=== PATIENT | male | born 1950 | race Caucasian/White ===

== ENCOUNTER 2016-09-11 07:51 | Outpatient (CLI) | payer MEDICAID ==
[~2016-09-11] VITALS: Ht 185.4 cm; Wt 80.9 kg
--- NOTE | ~2016-09-11 | HEMODYNAMI ---
PATIENT:NAEEM ESTEVEZ MEDICAL RECORD: [id number] : 54 LOCATION:SIGRID ADMISSION DATE: 09/11/16 Generatedon:09/11/201613:07 Patient name: NAEEM ESTEVEZ Patient #: [id number] SSN: : 1950 Date of study: 09/11/2016 Page: Of Hemodynamic Procedure Report Patient Data Patient Demographics Procedure consent was obtained First Name: NAEEM Gender: Male Last Name: ZENAIDA : 1950 Patient #: [id number] Age: 66 year(s) Race: Unknown Additional ID: [id number] Contact details [address]: [address] [place] [address] State: [place] City: [place] Zip code: [address] Admission Admission Data Admission Date: 09/11/2016 Admission Time: 7:51 Procedure Procedure Types Cath Procedure Peripheral Cath Diagnostic Procedure Miscellaneous Procedure Description Procedure Date Procedure Date: 09/11/2016 Procedure Start Time: 11:41 Procedure Staff Name Function Leighton Marsh MD Performing Physician Cris Montaño RT Scrub Maria C Duron RN Nurse Gil Rahman RT Monitor Procedure Data Cath Procedure Fluoroscopy Diagnostic fluoroscopy Total fluoroscopy Time: 0 time: 0 min min Diagnostic fluoroscopy Total fluoroscopy dose: 284 dose: 284 mGy mGy Contrast Material Contrast Material Type Amount (ml) Isovue 300 114 Entry Location Entry Primary Successful Side Size Upsize 1 Upsize Entry Closure Bowers ccessful Closure Location (Fr) (Fr) 2 (Fr) Remarks Device Remarks Femoral Left 5 Fr 7 Fr Exoseal artery Mid-Length Diagnostic catheters Device Type Used For End Catheter Placement Merit ULTRA BOLUS FLUSH 5Fr 65CM catheter Procedure Medications Medication Administration Route Dosage Fentanyl I.V. 50 mcg Versed I.V. 1 mg Hydralizine I.V. 10 mg Fentanyl I.V. 50 mcg Versed I.V. 1 mg Heparin Bolus I.V. 5000 units Hemodynamics Rest Heart Rate: 63 (bpm) Snapshots Pre Cath Intra NCS Post Cath Vital Signs Time Heart Resp SPO2 NIBP (mmHg) Rhythm Pain Sedation Rate (ipm) (%) Status Level (bpm) 11:31:13 64 19 100 162/96(142) NSR 0 (11) 10(A) , No pain 11:35:33 65 21 100 172/90(140) NSR 0 (11) 10(A) , No pain 11:39:58 60 16 100 179/90(145) NSR 0 (11) 10(A) , No pain 11:44:24 66 21 100 164/94(148) NSR 0 (11) 10(A) , No pain 11:49:43 64 35 100 183/93(153) NSR 0 (11) 10(A) , No pain 11:54:10 70 23 99 180/106(150) NSR 0 (11) 10(A) , No pain 11:58:30 81 16 99 171/92(144) NSR 0 (11) 10(A) , No pain 12:02:50 74 21 98 160/82(132) NSR 0 (11) 10(A) , No pain 12:07:12 75 22 98 156/80(126) NSR 0 (11) 10(A) , No pain 12:11:32 70 60 98 143/79(115) NSR 0 (11) 10(A) , No pain 12:15:50 74 39 98 144/75(125) NSR 0 (11) 10(A) , No pain 12:20:06 72 37 99 152/79(115) NSR 0 (11) 10(A) , No pain 12:24:26 71 29 98 142/79(118) NSR 0 (11) 10(A) , No pain 12:28:43 70 16 99 152/78(114) NSR 0 (11) 10(A) , No pain 12:33:05 68 26 99 142/73(120) NSR 0 (11) 10(A) , No pain 12:37:21 68 30 99 144/77(119) NSR 0 (11) 10(A) , No pain 12:41:39 67 39 99 143/72(122) NSR 0 (11) 10(A) , No pain 12:45:55 68 15 99 141/77(119) NSR 0 (11) 10(A) , No pain 12:50:11 69 16 98 146/76(124) NSR 0 (11) 10(A) , No pain 12:54:27 67 24 99 156/82(119) NSR 0 (11) 10(A) , No pain 12:58:47 69 28 99 155/82(127) NSR 0 (11) 10(A) , No pain 13:03:07 68 22 99 150/81(124) NSR 0 (11) 10(A) , No pain 13:07:07 No Cuff NSR 0 (11) 10(A) , No pain Medications Time Medication Route Dose Verified Delivered Reason Notes Effecti veness by by 11:50:14 Versed I.V. 1 mg Maria C Maria C for sedation Oliverio Duron RN RN 11:50:25 Fentanyl I.V. 50 Maria C Maria C for sedation mcg Oliverio Duron RN RN 11:56:17 Hydralizine I.V. 10 mg Maria C Maria C for Oliverio Oliverio hypertension RN RN 12:05:00 Fentanyl I.V. 50 Maria C Maria C for sedation mcg Oliverio Duron RN RN 12:05:08 Versed I.V. 1 mg Maria C Maria C for sedation Oliverio Duron RN RN 12:10:23 Heparin I.V. 5000 Maria C Maria C Bolus units Oliverio Duron RN occupational therapy department chair Log Time Note 10:43:45 Gil Rahman RT (R) (CV) sent for patient. Start room use. 10:43:56 Time tracking: Regular hours 10:44:04 Plan of Care:Hemodynamics will remain stable., Cardiac rhythm will remain stable., Comfort level will be maintained., Respiratory function will remain adequate., Patient/ family verbilizes understanding of procedure., Procedure tolerated without complication., Recovers from procedure without complications.. 10:44:13 Patient received from Outpatients to IR Alert and oriented. Tansferred to table in Supine position. 10:44:14 Correct patient and procedure confirmed by team. 10:44:16 ECG and BP/O2 sat monitors applied to patient. 10:44:19 Signed procedure consent form obtained from patient. 10:44:21 Full Disclosure recording started 10:44:22 - 10:44:23 - 10:44:26 H&P Date Dictated: 09/11/2016 H&P Addendum completed by physician on day of procedure. (MUST COMPLETE FOR ALL OUTPATIENTS). 10:44:27 Pre-procedure instructions explained to patient. 10:44:27 Pre-op teaching completed and patient verbalized understanding. 10:44:30 Family in waiting room. 10:44:32 Patient NPO since Midnight. 10:44:41 Is the patient allergic to Iodine/contrast media? No. 10:44:43 Is patient on blood thinner?Yes 10:44:46 ACC The patient was administered the following blood thiners within the last 24 hours: ACCPlavix 10:44:47 Patient diabetic? Yes. 10:44:49 If diabetic: On Metformin? Yes 10:44:57 If on Metformin: Last Dose? 09/10/2016 10:45:00 - 10:45:00 ----Pre-sedation anethsthesia assessment.---- 10:45:02 Previous problem with sedation/anesthesia? No ? 10:45:05 Snore? Yes 10:45:06 Sleep apnea? No 10:45:08 Deviated septum? No 10:45:08 Opens mouth fully? Yes 10:45:10 Sticks out tongue? Yes 10:45:17 Airway obstruction? No ? 10:45:20 Dentures? No ? 10:45:21 - 10:45:29 Use device set IR Diagnostic 10:45:30 Acist Syringe opened to sterile field. 10:45:30 Acist Hand Control opened to sterile field. 10:45:31 Acist Manifold opened to sterile field. 10:45:31 Bag Decanter opened to sterile field. 10:45:32 Sterile Angiographic Pack opened to sterile field. 10:49:41 Pre procedure: right dorsailis pedis pulse Doppler 10:49:45 Pre procedure: left dorsailis pedis pulse 2+ Normal; easily identifiable; not easily obliterated 10:49:47 Pre procedure: right posterior tibial pulse Doppler 10:49:51 Pre procedure: left posterior tibial pulse 2+ Normal; easily identifiable; not easily obliterated 10:49:58 Patient pain scale 0/10 no pain. 10:50:01 Sharps counted by scrub and verified by R.N. 10:50:01 Alarms reviewed by R. N. 10:50:08 Bilateral groins area was prepped with chlora-prep and draped in steril e fashion 11:13:46 Vital chart was started 11:13:48 Baseline sample Acquired. 11:13:51 Rhythm: sinus rhythm 11:30:10 Baseline sample Acquired. 11:32:21 Baseline sample Acquired. 11:32:34 IV patent on arrival in right forearm with 0.9% NaCl at [facility]. 11:37:23 Physician responded to page. 11:37:25 Physician responded to page. 11:37:26 Physician responded to page. 11:37:26 Physician responded to page. 11:37:27 Physician responded to page. 11:37:28 Physician responded to page. 11:37:29 Physician arrived 11:37:30 --------ALL STOP TIME OUT------ 11:37:32 Final Timeout: patient, procedure, and site verified with staff and physician. All members of the team are in agreement. 11:37:39 Bilateral groins site verified by team. 11:37:45 Physical assessment completed. ASA score P 3 - A patient with mild systemic disease as per Leighton Marsh MD. 11:37:48 Sedation plan: IV Moderate Sedation Versed, Fentanyl 11:41:09 Procedure started. 11:41:17 Local anesthetic to left femerol artery with Lidocaine 1% by Leighton Marsh MD.INITIAL ACCESS ONLY 11:41:28 A 5 Fr sheath was inserted into the Left Femoral artery 11:41:32 TUBING, CONTRAST INJCTN HI PRES opened to sterile field. 11:41:33 Micropuncture VSI 4FR kit opened to sterile field. 11:41:34 Terumo 5Fr Independence Sheath opened to sterile field. 11:41:34 Amitive DOC .035 guide wire opened to sterile field. 11:41:34 Cook RANDALL 260 guide wire opened to sterile field. 11:41:52 A Ulmart ULTRA BOLUS FLUSH 5Fr 65CM catheter was advanced over the wire and used for . 11:49:58 Terumo ANGLE 180L glide wire opened to sterile field. 11:50:14 Versed 1 mg I.V. was administered by Maria C Duron RN; for sedation; 11:50:25 Fentanyl 50 mcg I.V. was administered by Maria C Duron RN; for sedation; 11:50:31 Terumo TORQUE DEVICE PLASTIC .038 opened to sterile field. 11:56:17 Hydralizine 10 mg I.V. was administered by Maria C Duron RN; for hypertension; 12:01:45 Terumo 7Fr Independence Destination Sheath opened to sterile field. 12:01:58 Sheath upsized to a 7 Fr Mid-Length. 12:03:57 SPIDER EMBOLIC PROTECTION DEVICE 5MM opened to sterile field. 12:05:00 Fentanyl 50 mcg I.V. was administered by Maria C Duron RN; for sedation; 12:05:08 Versed 1 mg I.V. was administered by Maria C Duron RN; for sedation; 12:06:24 Terumo 5FR ANGLED 100CM glide catheter opened to sterile field. 12:07:11 Terumo ANGLE 260cm glide wire opened to sterile field. 12:09:40 Terumo TORQUE DEVICE PLASTIC .038 opened to sterile field. 12:10:23 Heparin Bolus 5000 units I.V. was administered by Maria C Duron RN; ; 12:10:26 CXI SUPPORT .035 135 CM STR catheter opened to sterile field. 12:13:39 BasixTOUCH Inflation Syringe opened to sterile field. 12:14:10 [place] Sci Choice PT Extra Support J 300cm .014 gu opened to sterile field. 12:14:19 SPIDER EMBOLIC PROTECTION DEVICE 5MM opened to sterile field. 12:25:34 TURB[place]K LS-C catheter opened to sterile field. 12:29:28 VIABAHN 6 X 15 X 120 stent was deployed across Distal Common Femoral, Right . 12:34:41 Inflation number: 1 A Cordis Powerflex Pro 6.0 x 40 x 135cm balloon was prepped and advanced across the Distal Common Femoral, Right, then inflated to 0 FREDI for 0:00 (min:sec). 12:39:42 St Cristo 7FR sheath opened to sterile field. 12:39:44 Cordis 7Fr Exoseal opened to sterile field. 12:51:21 Sheath removed intact; hemostasis achieved with Exoseal to the Left Femoral artery. 12:51:24 Procedure ended.(Physican Out) 12:53:42 Contrast amount:Isovue 300 114ml. 12:53:48 Fluoroscopy time 00.00 minutes. 12:53:54 Fluoroscopy dose: 284 mGy 12:53:54 Flurop Dose total: 284 12:54:01 Post-op/insertion site Left Femoral artery dressed using a 4 x 4 and Tegaderm. 12:54:07 Post left femerol artery:stable 12:54:13 Post procedure: right dorsailis pedis pulse 1+ Palpable, but thready & weak; easily obliterated. 12:54:17 Post procedure: left dorsailis pedis pulse 2+ Normal; easily identifiable; not easily obliterated. 12:54:22 Post procedure: right posterior tibial pulse 1+ Palpable, but thready & weak; easily obliterated. 12:54:30 Post procedure: left posterior tibial pulse 2+ Normal; easily identifiable; not easily obliterated. 12:54:37 Post procedure instruction explained to patient.Patient verbalizes understanding. 12:54:38 Procedure and supply charges have been captured, reviewed, submitted an d are correct. 12:54:51 Post-procedure physical assessment completed. ASA score P 3 - A patient with severe systemic disease as per Leighton Marsh MD. 13:06:54 Report given to Outpatients. 13:06:59 Patient transfered to Outpatients with Stretcher. 13:07:57 Vital chart was stopped Intervention Summary Intervention Notes Time ActionType Lesion and Equipment Action# Pressure Duration Attributes Used 12:29:28 Deploy self Distal VIABAHN 6 1 expanding Common X 15 X stent Femoral, 120 stent Right 12:34:41 Inflate Distal Cordis 1 0 00:00 balloon Common Powerflex Femoral, Pro 6.0 x Right 40 x 135cm balloon Device Usage Item Name Manufacture Quantity Catalog Number Hospital Part Current M inimal Lot# / Charge Number Stock Stock Serial# Code Acist Syringe Acist 1 62159 643448 302272 325245 2 0 Medical Systems Inc Acist Hand Acist 1 92610 504769 040271 944330 5 Control Medical Systems Inc Acist Acist 1 64003 697243 871970 454594 5 Manifold Medical Systems Inc Bag Decanter Microtek 1 2002S 313843 02113 066226 5 Medical Inc. Sterile Cardinal 1 [id number] 959396 790342 5 Angiographic Health Pack TUBING, Merit 1 [id number] 398982 701413 421715 5 CONTRAST Medical INJCTN HI PRES Micropuncture VSI VASCULAR 1 7266V 379658 091604 5 VSI 4FR kit SOLUTIONS Terumo 5Fr Terumo 1 FAC206 176631 724549 700416 4 0 Independence Sheath Cook DOC .035 [facility] 1 T37659 356146 883751 5 [id number] guide wire [facility] 1 [id number] 662835 427413 5 [id number] 260 guide wire Merit ULTRA Merit 1 [id number] 209451 139691 5 BOLUS FLUSH Medical 5Fr 65CM catheter Terumo ANGLE Terumo 1 CM8134 633745 832667 781388 5 180L glide wire Terumo TORQUE [place] 2 TD01 648913 348028 181384 5 DEVICE Scientific PLASTIC .038 Terumo 7Fr Terumo 1 RSR04 491932 547773 033626 5 Independence Destination Sheath SPIDER [facility] 2 CSB4-KB-990-320 234217 854948 5 EMBOLIC PROTECTION DEVICE 5MM Terumo 5FR Terumo 1 CG508 229989 85174 306200 4 ANGLED 100CM glide catheter Terumo ANGLE Terumo 1 ZD3526 712389 734677 792295 5 260cm glide wire CXI SUPPORT [facility] 1 D42377 167855 791838 5 4826246 .035 135 CM STR catheter BasixTOEffektif [facility] 1 WS5311 160864 105902 287304 5 Inflation Medical Syringe Decatur Sci [place] 1 [id number] 077776 845698 160701 5 [id number] Choice PT Scientific Extra Support J 300cm .014 gu TURB[place]K Ev3 1 THS-LS-C 045223 796986 5 LS-C catheter VIABAHN 6 X [place] 1 [id number] 669794 278427 015177 5 [id number] 15 X 120 stent Cordis Cardinal 1 [id number] 555867 062760 944435 5 Powerflex Pro Health 6.0 x [address] Crist[facility] [address] [facility] Cristo 1 694750 296404 338011 5 [id number] sheath Cordis 7Fr Cardinal 1 EX700 461302 899765 261078 5 [id number] [facility] Health Signature Audit Tavares Stage Time Signature Unsigned Intra-Procedure 09/11/2016 Gil 1:07:54 PM Josiah RT (R) (CV) Signatures Monitor : Gil Signature : Josiah RT Date : Time : [facility] [address] [place] [address]
[2016-09-11 08:40] LABS: BASOPHILS 0.6 % (0-2); EOSINOPHILS 2.1 % (0-7); HEMATOCRIT 39.3 % (42.0-54.0); HEMOGLOBIN 12.8 g/dL (13.5-17.5); IMMATURE GRANULOCYTES 0.2 % (0-5); LYMPHOCYTES 33.4 % (15-50); MCHC 32.6 g/dL (31.0-37.0); MEAN PLATELET VOLUME 9.7 fL (7.4-10.4); MONOCYTES 8.3 % (2-11); NEUTROPHILS 55.4 % (40-80); PLATELET COUNT 170 10x3/uL (130-400); RBC 4.57 10x6/uL (4.20-6.10); RDW 14.5 % (11.5-14.5); WBC 5.3 10x3/uL (4.8-10.8)
[2016-09-11 08:49] LABS: APTT 28.8 SECONDS (22.8-39.4); CALC OSMOLALITY 287 mosm/kg (275-300); CALCIUM 8.6 mg/dL (8.5-10.1); CARBON DIOXIDE 26.5 mmol/L (21.0-32.0); CHLORIDE - SERUM 107 mmol/L (98-107); CREATININE - SERUM 0.8 mg/dL (0.6-1.3); GLUCOSE 148 mg/dL (74-106); INR 0.93 (0.85-1.17); POTASSIUM - SERUM 4.1 mmol/L (3.5-5.1); PROTIME 12.3 SECONDS (11.6-15.0); SODIUM 142 mmol/L (136-145); UREA NITROGEN 18 mg/dL (7-18); eGFR NON AFRICAN AMERICAN > 90 mL/min (90-120)
[2016-09-11 09:19] VITALS: BP 172/99; Ht 185.4 cm; Wt 80.9 kg
[2016-09-11] MEDS ORDERED: PLAVIX75 MG PO (09:26)
[2016-09-11] MEDS ORDERED: GLUCOPHAGE500 MG PO (09:26)
[2016-09-11] MEDS ORDERED: COLCRYS0.6 MG PO (09:27)
== END 2016-09-11 16:15 | disposition home or self-care (01) ==
LOC: D.OPS 07:51 → D.SP 10:00 → D.OPS 10:00
PROVIDERS: General Practice
DX: I72.4 Aneurysm of artery of lower extremity (principal); Z01.812 Encounter for preprocedural laboratory examination

== ENCOUNTER → 2017-06-04 11:58 | Outpatient (CLI) | payer MEDICARE, MEDICAID ==
[2016-09-11 09:19] VITALS: BMI 23.5
[~2017-06-04 11:58] MED LIST: COLCRYS0.6 MG PO; GLUCOPHAGE500 MG PO; PLAVIX75 MG PO
== END | disposition home or self-care (01) ==
LOC: D.CT 11:58
DX: I73.9 Peripheral vascular disease, unspecified (principal)

== ENCOUNTER → 2018-06-19 13:03 | Outpatient (CLI) | payer MEDICARE, MEDICAID ==
[2016-09-11 09:19] VITALS: BMI 23.5
--- NOTE | 2018-06-24 13:02 | EC ---
PATIENT:NAEEM ESTEVEZ DATE OF SERVICE: 06/19/18 SEX: M MEDICAL RECORD: [id number] DATE OF : 54 LOCATION:[facility] AGE OF PATIENT: 68 ADMISSION DATE: 06/19/18 REFERRING PHYSICIAN: INTERPRETING PHYSICIAN: JULIAN CAROLINA MD ECHOCARDIOGRAM REPORT ECHO CHARGES 4 ECHO COMPLETE Date: 06/19/18 CLINICAL DIAGNOSIS: HYPOTENSION H/O HTN/PVD ECHOCARDIOGRAPHIC MEASUREMENTS (adult normal given) AC root (d.<3.7cm) 3.3 cm LV Septum d (<1.2 cm> 1.0 cm Valve Excursion 2.3 cm LV Septum (systole) 1.6 cm Left Atria (s.<4.0cm> 3.3 cm LVPW d(<1.2cm) 1.2 cm RV (d.<2.3cm) 2.6 cm LVPW (sytole) 1.8 cm LV diastole(<5.6CM) 5.0 cm MV E-F(>70mm/sec) cm LV systole 3.3 cm LVOT Diameter 2.1 cm MV exc.(>10mm) cm Est.ejection fraction (50-75%) % DOPPLER: LVIT cm/sec A 60.0 cm/sec E 48.0 cm/sec LA cm/sec RVSP mmHg LVOT 117 cm/sec AOP1/2T m/s Asc. Ao 136 cm/sec RVOT 79.0 cm/sec RA cm/sec PA 102 cm/sec AV Gradient Peak 7.4 mmHg AV Mean 3.8 mmHg AV Area 3.0 cm MV Gradient Peak 2.3 mmHg MV Mean 0.85 mmHg MV Area cm COMMENTS: OP - HC Senior Commercial Loan Officer: 1 ALANNA ROSAOE Workers Compensation Specialist: 3 Dr. Stauffer TAPE# PACS Pericardial Effusion N DATE OF SERVICE: Adequate 2D, color flow, spectral Doppler, and M-Mode. Borderline LVH. LV internal dimension is normal. Wall motion normal. EF is greater than or equal to 55%. Aortic valve is tricuspid. No evidence of stenosis on Doppler interrogation. Left atrium is normal at 3.3 cm. Mitral valve shows no prolapse. Trace MR. Right-sided chambers grossly normal. Trace TR. TRANSINT:[id number] Voice Confirmation ID: [id number] DOCUMENT ID: [id number] ECHOCARDIOGRAM REPORT [id number] NAEEM ESTEVEZ GREGORY A MD at 1302 CC: [id number] DICTATION DATE: 06/21/1837 JUNIOR LINUX SYSTEMS ADMINISTRATOR: 06/21/18 1100 DEP CLI 06/19/18 [place] [place] [address]
== END | disposition home or self-care (01) ==
LOC: D.HCCARDIO 13:03
PROVIDERS: ATTEND Internal Medicine Interventional Cardiology
DX: I10 Essential (primary) hypertension (principal)

== ENCOUNTER 2018-08-23 10:29 | Inpatient (IN) | payer MEDICARE, MEDICAID ==
[~2018-08-23] VITALS: Ht 185.4 cm; Wt 79.8 kg
[2018-08-23] MEDS ORDERED: VALIUM10 MG PO (10:59)
[2018-08-23] MEDS ORDERED: DILAUDID4 MG PO (10:59)
[2018-08-23 12:00] VITALS: BP 154/90
[2018-08-23 13:56] LABS: APPEARANCE CLEAR (CLEAR); BILIRUBIN NEGATIVE (NEGATIVE); COLOR YELLOW (YELLOW); GLUCOSE 50 mg/dL (NEGATIVE); KETONE SMALL mg/dL (NEGATIVE); NITRITE NEGATIVE (NEGATIVE); PROTEIN NEGATIVE (NEGATIVE); SPECIFIC GRAVITY 1.015 (1.005-1.020); UROBILINOGEN NORMAL (NORMAL)
[2018-08-23 13:58] LABS: BASOPHILS 0.2 % (0-2); EOSINOPHILS 1.3 % (0-7); HEMATOCRIT 38.5 % (42.0-54.0); HEMOGLOBIN 13.9 g/dL (13.5-17.5); IMMATURE GRANULOCYTES 0.5 % (0-5); LYMPHOCYTES 16.6 % (15-50); MCH 29.1 pg (26.0-34.0); MCHC 36.1 g/dL (31.0-37.0); MCV 80.5 fL (80.0-100.0); MEAN PLATELET VOLUME 9.5 fL (7.4-10.4); MONOCYTES 6.8 % (2-11); NEUTROPHILS 74.6 % (40-80); PLATELET COUNT 178 10x3/uL (130-400); RBC 4.78 10x6/uL (4.20-6.10); RDW 13.1 % (11.5-14.5); WBC 9.1 10x3/uL (4.8-10.8)
[2018-08-23 14:00] VITALS: BP 162/50
--- NOTE | 2018-08-23 14:02 | NUR ---
ORDERED FOOD TRAY FOR PATIENT AT THIS TIME
[2018-08-23 14:12] LABS: ALBUMIN 3.7 g/dL (3.4-5.0); ALKALINE PHOSPHATASE 62 U/L (46-116); ALT (SGPT) 30 U/L (10-68); BILIRUBIN - TOTAL 0.61 mg/dL (0.2-1.3); CALC OSMOLALITY 268 mosm/kg (275-300); CALCIUM 9.1 mg/dL (8.5-10.1); CARBON DIOXIDE 23.7 mmol/L (21.0-32.0); CHLORIDE - SERUM 98 mmol/L (98-107); CREATININE - SERUM 0.7 mg/dL (0.6-1.3); GLUCOSE 138 mg/dL (74-106); POTASSIUM - SERUM 4.7 mmol/L (3.5-5.1); PROTEIN - SERUM 6.7 g/dL (6.4-8.2); SODIUM 132 mmol/L (136-145); UREA NITROGEN 17 mg/dL (7-18); eGFR NON AFRICAN AMERICAN > 90 mL/min (90-120)
[2018-08-23 14:13] LABS: C-REACTIVE PROTEIN < 0.2 mg/dL (0.0-0.9)
[2018-08-23] MEDS ORDERED: LISINOPRIL10 MG PO (17:53)
[2018-08-23] MEDS ORDERED: ASPIRIN325 MG PO (17:56)
[2018-08-23 18:16] VITALS: BP 135/69; BMI 23.2
--- NOTE | 2018-08-23 19:45 | NUR ---
SUPINE IN BED, FAMILY AT BEDSIDE. PT IS ALERT AND ORIENTED X 4. STATES PAIN IS WEEL CONTROLLED WITH LONG TERM CARE PHARMACIST, THAT HE IS ABLE TO MOVE LOWER EXTREMITIES WITHOUT SEVERE PAIN. DENIES NEEDS AT THIS TIME, WILL CONTINUE TO MONITOR.
[2018-08-23 20:00] VITALS: BP 141/90
[2018-08-24] VITALS: BP 116/69
--- NOTE | 2018-08-24 03:00 | NUR ---
I have reviewed this patient and I concur with the Shift Assessment completed by the Licensed Practical Nurse today this shift.
[2018-08-24 04:00] VITALS: BP 128/75
[2018-08-24 05:03] LABS: BASOPHILS 0 % (0-2); EOSINOPHILS 0 % (0-7); HEMATOCRIT 40.9 % (42.0-54.0); HEMOGLOBIN 14.4 g/dL (13.5-17.5); IMMATURE GRANULOCYTES 0.3 % (0-5); LYMPHOCYTES 7.8 % (15-50); MCH 28.9 pg (26.0-34.0); MCHC 35.2 g/dL (31.0-37.0); MEAN PLATELET VOLUME 9.9 fL (7.4-10.4); MONOCYTES 3.7 % (2-11); NEUTROPHILS 88.2 % (40-80); PLATELET COUNT 200 10x3/uL (130-400); RBC 4.99 10x6/uL (4.20-6.10); RDW 13.5 % (11.5-14.5); WBC 8.9 10x3/uL (4.8-10.8)
[2018-08-24 05:27] LABS: ALBUMIN 3.4 g/dL (3.4-5.0); ALKALINE PHOSPHATASE 65 U/L (46-116); ALT (SGPT) 25 U/L (10-68); BILIRUBIN - TOTAL 0.26 mg/dL (0.2-1.3); CALCIUM 8.7 mg/dL (8.5-10.1); CARBON DIOXIDE 22.4 mmol/L (21.0-32.0); CHLORIDE - SERUM 103 mmol/L (98-107); CREATININE - SERUM 0.8 mg/dL (0.6-1.3); MAGNESIUM - SERUM 2.4 mg/dL (1.8-2.4); POTASSIUM - SERUM 4.5 mmol/L (3.5-5.1); PROTEIN - SERUM 6.9 g/dL (6.4-8.2); SODIUM 136 mmol/L (136-145); UREA NITROGEN 21 mg/dL (7-18); eGFR NON AFRICAN AMERICAN > 90 mL/min (90-120)
[2018-08-24 05:28] LABS: CALC OSMOLALITY 280 mosm/kg (275-300); GLUCOSE 201 mg/dL (74-106)
[2018-08-24 08:47] VITALS: BP 134/79
--- NOTE | 2018-08-24 09:07 | NUR ---
PT ALERT X 4. BREATH SOUNDS CLEAR BILAT. PT REPORTING NO PAIN AT THIS TIME, TUBE FILLER IN PLACE. IV TO RIGHT FOREARM, PATENT, DRESSING CDI. BED LOW, CALL LIGHT IN REACH. NO OTHER NEEDS AT THIS TIME.
[2018-08-24 12:20] VITALS: Ht 185.4 cm; Wt 79.8 kg
[2018-08-24 12:34] VITALS: BP 141/66
[2018-08-24 16:58] VITALS: BP 168/81
--- NOTE | 2018-08-24 19:45 | NUR ---
PT SITTING UP IN BED WITHOUT DISTRESS, ALERT AND ORIENTED. IV RIGHT FA INFUSING NS @ 30 WITH MORPHINE BOOKMAKER MAP. PT STATES PAIN IN BACK WELL CONTROLLED WITH BOOKMAKER MAP. CANNOT AMBULATE AT THIS TIME, STATES TOO MUCH PAIN. REQUESTED AND GIVEN DIET COKE. DENIES OTHER NEEDS. CL IN REACH, WILL CTM
[2018-08-24 19:54] VITALS: BP 116/73
--- NOTE | 2018-08-24 20:30 | NUR ---
BS 195, PT REFUSED INSULIN. STATES HE IS TAKING HIS METFORMIN, HE DOES NOT NEED THE INSULIN
[2018-08-25] VITALS: BP 99/61
[2018-08-25 04:00] VITALS: BP 127/71
[2018-08-25 06:09] LABS: BASOPHILS 0.1 % (0-2); EOSINOPHILS 1.3 % (0-7); HEMATOCRIT 38.2 % (42.0-54.0); HEMOGLOBIN 12.9 g/dL (13.5-17.5); IMMATURE GRANULOCYTES 0.3 % (0-5); LYMPHOCYTES 23.4 % (15-50); MCH 28.7 pg (26.0-34.0); MCHC 33.8 g/dL (31.0-37.0); MEAN PLATELET VOLUME 9.9 fL (7.4-10.4); MONOCYTES 7.5 % (2-11); NEUTROPHILS 67.4 % (40-80); PLATELET COUNT 172 10x3/uL (130-400); RDW 14.1 % (11.5-14.5); WBC 9.8 10x3/uL (4.8-10.8)
[2018-08-25 06:10] LABS: MCV 84.9 fL (80.0-100.0)
[2018-08-25 06:39] LABS: ALKALINE PHOSPHATASE 51 U/L (46-116); ALT (SGPT) 24 U/L (10-68); BILIRUBIN - TOTAL 0.27 mg/dL (0.2-1.3); CALC OSMOLALITY 284 mosm/kg (275-300); CALCIUM 8.1 mg/dL (8.5-10.1); CARBON DIOXIDE 25.3 mmol/L (21.0-32.0); CHLORIDE - SERUM 106 mmol/L (98-107); CREATININE - SERUM 0.8 mg/dL (0.6-1.3); MAGNESIUM - SERUM 2.2 mg/dL (1.8-2.4); POTASSIUM - SERUM 4.2 mmol/L (3.5-5.1); SODIUM 140 mmol/L (136-145); UREA NITROGEN 25 mg/dL (7-18); eGFR NON AFRICAN AMERICAN > 90 mL/min (90-120)
[2018-08-25 06:41] LABS: GLUCOSE 135 mg/dL (74-106)
--- NOTE | 2018-08-25 08:07 | NUR ---
PT ALERT X 4. BREATH SOUNDS CLEAR BILAT. IV TO RIGHT FOREARM, SALINE LOCKED. PT REPORTING PAIN OF 2/10, WILL MONITOR. BED LOW, CALL LIGHT IN REACH. NO OTHER NEEDS AT THIS TIME.
[2018-08-25 09:32] VITALS: BP 104/90
[2018-08-25] MEDS ORDERED: ROBAXIN500 MG PO (10:06)
[2018-08-25] MEDS ORDERED: HYDROCODON-ACE1 EAC7 PO (10:07)
[2018-08-25] MEDS ORDERED: COLCRYS0.6 MG PO (10:44)
[2018-08-25 13:17] VITALS: BP 168/88
--- NOTE | 2018-08-25 13:52 | MORECARE ---
CASE MANAGEMENT DISCHARGE SUMMARY PATIENT: NAEEM ESTEVEZ UNIT: [id number] ADM DATE: 08/24/18 AGE: 68 : 52 SEX: M ROOM/BED: D.2204 AUTHOR: NNEKA CARLIN PHYSICIAN: REFERRING PHYSICIAN: DARREL IRVIN MD DATE OF SERVICE: 08/25/18 Discharge Plan Patient Name: NAEEM ESTEVEZ Facility: [facility]:[place] : 1950 Planned Disposition: Home Anticipated Discharge Date: 08/25/18 Discharge Date: Expected LOS: 1 Initial Reviewer: [email or web address] Initial Review Date: 08/23/2018 Generated: 08/25/18 2:52 pm Patient Name: NAEEM ESTEVEZ Page 55098 at 1352 All edits/amendments must be made on the electronic document DICTATION DATE: 08/25/18 1351 NIGHT SHIFT MANAGER: JULIETA 08/25/18 1351 RPT#: [id number] DC DATE: STATUS: ADM IN [facility] [address] [place] [address] END OF REPORT
--- NOTE | 2018-08-25 13:59 | MORECARE ---
CASE MANAGEMENT DISCHARGE SUMMARY PATIENT: NAEEM ESTEVEZ UNIT: [id number] ADM DATE: 08/24/18 AGE: 68 : 52 SEX: M ROOM/BED: D.2204 AUTHOR: NNEKA CARLIN PHYSICIAN: REFERRING PHYSICIAN: DARREL IRVIN MD DATE OF SERVICE: 08/25/18 Discharge Plan Patient Name: NAEEM ESTEVEZ [facility] : 1950 Planned Disposition: Home Anticipated Discharge Date: 08/25/18 Discharge Date: Expected LOS: 1 Initial Reviewer: [email or web address] Initial Review Date: 08/23/2018 Generated: 08/25/18 2:59 pm DCPIA - Discharge Planning Initial Assessment Updated by [email or web address]: Garima Clifton on 08/25/18 1:57 pm * Is the patient Alert and Oriented? Yes * PCP Dr. Juárez * Pharmacy [facility] * Preadmission Environment Home Alone * ADLs Independent * Equipment Rolling Walker Wheelchair * Other Equipment Lift chair, walk in shower, * List name and contact numbers for known caregivers / representatives who currently or will assist patient after discharge: Alexis White - employee - transportation at [place] Yash Estevez - [facility] - [phone] * Verbal permission to speak to the caregivers and representatives has been obtained from the patient. Yes * Community resources currently utilized None * Additional services required to return to the preadmission environment? No * Can the patient safely return to the preadmission environment? Yes * Has this patient been hospitalized within the prior 30 days at any hospital? No Last DP export: 08/25/18 12:52 pm Patient Name: NAEEM ESTEVEZ Page 55439 at 1359 All edits/amendments must be made on the electronic document DICTATION DATE: 08/25/18 1359 LAMP DECORATOR: JULIETA 08/25/18 1359 RPT#: [id number] [place] DATE: STATUS: ADM IN [facility] [address] [place] [address] END OF REPORT
--- NOTE | 2018-08-25 14:08 | MORECARE ---
CASE MANAGEMENT DISCHARGE SUMMARY PATIENT: NAEEM ESTEVEZ UNIT: [id number] ADM DATE: 08/24/18 AGE: 68 : 52 SEX: M ROOM/BED: D.2204 AUTHOR: NNEKA CARLIN PHYSICIAN: REFERRING PHYSICIAN: DARREL IRVIN MD DATE OF SERVICE: 08/25/18 Discharge Plan Patient Name: NAEEM ESTEVEZ Facility: [facility]:[place] : 1950 Planned Disposition: Home Anticipated Discharge Date: 08/25/18 Discharge Date: Expected LOS: 1 Initial Reviewer: [email or web address] Initial Review Date: 08/23/2018 Generated: 08/25/18 3:08 pm Comments DCP- Discharge Planning Updated by [email or web address]: Garima Clifton on 08/25/18 1:[address] Patient Name: NAEEM ESTEVEZ Admission Status: ER Admission Date: 08-24-2018 : 1950 Admission Diagnosis: Attending: DARREL IRVIN Current LOS: 1 Anticipated DC Date: 08-25-2018 Planned Disposition: Home with ex , denied dc needs. Primary Insurance: [employer] [employer] Discharge Planning Comments: CM met with patient to complete initial dc planning assessment. CM educated patient on the CM role and verbal consent given by patient to complete assessment. CM verified patient's address, phone number, and emergency contact phone numbers. Patient lives at home alone and reports he is independent in his care at home. At discharge patient plans to return home and stated he would call one of his ex-wives to stay with him for a while. He feels this is a safe discharge plan. CM discussed availability of home health, rehab services, and medical equipment. Patient denied known discharge needs at this time. Patient reports his employee will transport him home at time of discharge. CM will continue to follow and will assist as needed with dc plans/needs. Phthalic Acid Purifier: Garima Clifton RN, [facility] DCPIA - Discharge Planning Initial Assessment Updated by [email or web address]: Garima Clifton on 08/25/18 1:57 pm * Is the patient Alert and Oriented? Yes * PCP Dr. Juárez * Pharmacy [facility] * Preadmission Environment Home Alone * ADLs Independent * Equipment Rolling Walker Wheelchair * Other Equipment Lift chair, walk in shower, * List name and contact numbers for known caregivers / representatives who currently or will assist patient after discharge: Alexis White - [place] - transportation at [place] Yash Estevez - [place] - [phone] * Verbal permission to speak to the caregivers and representatives has been obtained from the patient. Yes * Community resources currently utilized None * Additional services required to return to the preadmission environment? No * Can the patient safely return to the preadmission environment? Yes * Has this patient been hospitalized within the prior 30 days at any hospital? No Coverage Notice Reviewer: [email or web address] Alexandra Clifton Notice Issued Date-Time: 08/25/2018 12:55 Notice Type: IM Discharge Notice Notice Delivered To: Patient Relationship to Patient: Mechanical Systems Control Engineer Name: Delivery Method: HAND - Hand Delivered Sarah Days: Prior Verbal Notification: Recipient Understood Notice: Recipient Signature: Med Rec Note Co-signed by Attending: Coverage Notice Comment: Last DP export: 08/25/18 12:59 pm Patient Name: NAEEM ESTEVEZ Page 08179 at 1408 All edits/amendments must be made on the electronic document DICTATION DATE: 08/25/181406 MDS MANAGER: JULIETA 08/25/181406 RPT#: [id number] PA DATE: STATUS: ADM IN [facility] [address] [place] [address] END OF REPORT
--- NOTE | 2018-08-25 14:48 | NUR ---
DISCHARGE PAPERWORK SIGNED, ALL QUESTIONS ANSWERED. IV TO RIGHT FOREARM DC'D, TIP INTACT. ESCORTED OUT BY WHEELCHAIR.
== END 2018-08-25 14:49 | disposition home or self-care (01) | DRG 552 ==
LOC: D.ER 10:29 → D.MS 15:25 → OBSVTIME 15:26 → D.MS 08-24 11:57
PROVIDERS: Emergency Medicine; Family Medicine; ADMIT Internal Medicine Nephrology; ATTEND Internal Medicine Nephrology
DX: M51.36 Other intervertebral disc degeneration, lumbar region (principal); E87.1 Hypo-osmolality and hyponatremia; M54.5 Low back pain; G89.29 Other chronic pain; E11.65 Type 2 diabetes mellitus with hyperglycemia; I10 Essential (primary) hypertension; E11.51 Type 2 diabetes mellitus with diabetic peripheral angiopathy without gangrene; M10.061 Idiopathic gout, right knee

== ENCOUNTER → 2019-09-16 20:08 | Outpatient (CLI) | payer MEDICARE, MEDICAID ==
[2018-08-24 12:20] VITALS: BMI 23.2
[~2019-09-16 20:08] MED LIST changes: +ASPIRIN325 MG PO; +DILAUDID4 MG PO; +HYDROCODON-ACE1 EAC7 PO; +LISINOPRIL10 MG PO; +ROBAXIN500 MG PO; +VALIUM10 MG PO
[2019-09-16 22:29] LABS: PROTEIN - BODY FLUID 3.2 G/DL
[2019-09-16 22:53] LABS: NEUT - BF 54 %
[2019-09-16 22:54] LABS: EOS BF 1 %; MACROPHAGES BF 21 %; MESOTHELIALS BF 1 %
== END | disposition home or self-care (01) ==
LOC: D.LABREF 20:08
PROVIDERS: ATTEND Orthopaedic Surgery
DX: M25.461 Effusion, right knee (principal)